=== PATIENT | female | born 1960 | race Caucasian/White ===

== ENCOUNTER 2017-03-13 19:59 | Emergency (ER) | payer OTHER ==
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
[2017-07-06] MEDS ORDERED: REQUIP1 MG PO (10:48)
[2017-07-06] MEDS ORDERED: ADVAIR 250-501 EAC1 INH (14:18)
[2017-07-06] MEDS ORDERED: NEXIUM 24HR20 M1 (14:18)
== END 2017-03-13 21:37 | disposition home or self-care (01) ==
LOC: SED 19:59
DX: S46.912A Strain of unspecified muscle, fascia and tendon at shoulder and upper arm level, left arm, initial encounter (principal); F17.210 Nicotine dependence, cigarettes, uncomplicated; K21.9 Gastro-esophageal reflux disease without esophagitis; Z90.49 Acquired absence of other specified parts of digestive tract; Z90.710 Acquired absence of both cervix and uterus; V43.52XA Car driver injured in collision with other type car in traffic accident, initial encounter; Y92.410 Unspecified street and highway as the place of occurrence of the external cause
CPT/HCPCS: 73030; 99283

== ENCOUNTER → 2017-04-18 | Outpatient (CLI) | payer OTHER ==
[~2017-04-18] MED LIST: ADVAIR 250-501 EAC1 INH; NEXIUM 24HR20 M1; REQUIP1 MG PO
--- NOTE | ~2017-04-18 | MY11 ---
[facility] A Service of [facility] RADIOLOGY TEXT RESULTS PATIENT: DINO LI LOCATION: [facility] : 60 UNIT #: [id number] AGE: [address]: Slava Hills MD SEX: F ORDER DR: [id number] [address] [address] [id number] O MR#: [id number] Acc #: [id number] NAME: DINO LI : 1960 SEX: F STUDY DATE/TIME: 04/18/2017 13:31 UNIT: [facility] ROOM: STUDY DESCRIPTION: MY Mammogram Screening Dig [place] Attending Physician: Slava Hills M.D. Referring Physician: Slava Hills M.D. Ordering Physician: Slava Hills M.D. Primary Care Physician: Slava Hills M.D. MEDICAL IMAGING REPORT This report is preliminary unless electronic signature is present. EXAM Digital screening mammogram 04/18/2017 HISTORY 56-year-old woman new baseline. No risk elevation. COMPARISON None. COMPARISON Previous mammograms unavailable, [facility]. FINDINGS Digital imaging of each breast was completed utilizing screening protocol. Review includes FDA-approved CAD device. Breast parenchyma is partially fatty replaced. Residual fibroglandular opacities project subareolar locations and upper, outer quadrants of each breast. There is a significant dominance noted in the left breast. Although this has benign characteristics. There are occasional benign calcifications in each breast. I see no suspicious mass or suspicious microcalcifications and no architectural deformity. There is a bilateral nipple inversion noted. IMPRESSION Benign mammogram with benign dominance left breast. Annual screening recommended. Patient's over the age of 40 are entered into a reminder system with target due date for the next mammogram. BIRADS: 2 Benign findings [facility] A Service [facility] RADIOLOGY TEXT RESULTS PATIENT: DINO LI LOCATION: [facility] : 60 UNIT #: [id number] AGE: [address]: Slava Hills MD SEX: F ORDER DR: Dictated by... Mic Wells M.D. THIS IS AN ELECTRONICALLY VERIFIED REPORT Mic Wells M.D. at 04/18/2017 3:38 PM SHARON/vivien TD: 04/18/2017 15:27 JOB #: [id number] MEDICAL IMAGING REPORT Page 1 of 1
== END | disposition home or self-care (01) ==
LOC: SMAM 12:45
DX: Z12.31 Encounter for screening mammogram for malignant neoplasm of breast (principal)
CPT/HCPCS: G0202

== ENCOUNTER → 2017-07-06 | Day surgery (SDC) | payer OTHER ==
--- NOTE | ~2017-07-06 | OR ---
Unit #: [id number] #: [id number] Patient: DINO LI [id number] [address] [address] [id number] O MR#: [id number] NAME: DINO LI ROOM: Date of Procedure: 07/06/2017 Admission Date: 07/06/2017 Surgeon: Jignesh Villaseñor M.D. : 1960 Attending Physician: Jignesh Villaseñor M.D. Primary Care Physician: Slava Hills M.D. OPERATIVE REPORT PROCEDURE PERFORMED Colonoscopy to cecum with snare polypectomy. INDICATIONS FOR PROCEDURE A 56-year-old female average risk for colorectal cancer. MEDICATIONS Monitored anesthesia. POSTOPERATIVE FINDINGS 1. Three polyps, one in ascending, one in descending, one in sigmoid all about 3 to 5 mm, snared and sent for histopathology separately. 2. Good prep. PLAN Repeat colonoscopy in 5 years. DESCRIPTION OF PROCEDURE The patient was explained of the procedure, risks, and benefits along with the risk and benefits of anesthesia. She was brought to the endoscopy room. Propofol anesthesia was given. Rectal exam was done, which was normal. Colonoscope was lubricated, passed up the rectum, advanced under direct vision all the way to the cecum. Cecum was identified by ileocecal valve and appendiceal orifice. Several polyps were seen. They were all small described above. They were snared and sent for histopathology. I retroflexed in the rectum, small hemorrhoids seen. Scope was gently pulled out. She tolerated it well. Dictated by... Nery Santiago/mariluz TD: 07/06/2017 16:02 JOB #: [id number] CC: Diallo Muñoz M.D. Unit #: [id number] #: [id number] Patient: DINO LI OPERATIVE REPORT Page 1 of 1 X Jignesh Villaseñor MD X PROCEDURE OPERATIVE NOTE
== END | disposition home or self-care (01) ==
LOC: COPS 05-27 13:30
DX: Z12.11 Encounter for screening for malignant neoplasm of colon (principal); D12.2 Benign neoplasm of ascending colon; D12.4 Benign neoplasm of descending colon; K63.5 Polyp of colon; K64.9 Unspecified hemorrhoids; K21.9 Gastro-esophageal reflux disease without esophagitis; Z79.899 Other long term (current) drug therapy; J45.909 Unspecified asthma, uncomplicated; M54.5 Low back pain; Z87.898 Personal history of other specified conditions; Z88.0 Allergy status to penicillin
CPT/HCPCS: 88305; J2250